=== PATIENT | female | born 1965 | race Caucasian/White ===

== ENCOUNTER 2018-01-14 07:15 | Day surgery (SDC) | payer BC ==
[2018-01-14] MEDS ORDERED: PROPOFOL 20 ML (10:00)
[2018-01-14] MEDS ORDERED: CEFAZOLIN 1 GM INJ (10:00)
[2018-01-14] MEDS ORDERED: MIDAZOLAM 1 MG/ML 2 ML INJ (10:01)
[2018-01-14] MEDS ORDERED: METOCLOPRAMIDE 10 MG INJ (10:01)
[2018-01-14] MEDS ORDERED: FENTAnyl 50 MCG/ML VIAL (10:01)
[2018-01-14] MEDS ORDERED: ONDANSETRON 4 MG INJ (10:01)
[2018-01-14] MEDS ORDERED: KETOROLAC 30 MG INJ (10:13)
[2018-01-14] MEDS ORDERED: EPHEDrine SULFATE 50 MG/5 ML SYG (10:29)
== END 2018-01-14 12:53 | disposition home or self-care (01) ==
LOC: SDS 07:15
DX: N92.0 Excessive and frequent menstruation with regular cycle (principal); E03.9 Hypothyroidism, unspecified; I10 Essential (primary) hypertension
CPT/HCPCS: 58558; 88305